=== PATIENT | female | born 1960 | race African-American/Black ===

== ENCOUNTER 2017-12-23 11:43 | Emergency (ER) | payer MEDICARE, OTHER ==
[~2017-12-23] VITALS: Ht 165.1 cm; Wt 113.0 kg
[~2017-12-23 11:43] MED LIST: ALBUTEROL ORI; AMOX500T2 PO; IBUP-2030 PO; INHALER
[2017-12-23] MEDS ORDERED: IBUPROFEN 800MG TABLET PO ONE (15:15)
[2017-12-23] MEDS ORDERED: ACETAMINOPHEN 325MG TABLET PO ONE (16:15)
[2017-12-23 16:56] VITALS: BP 149/95
== END 2017-12-23 17:01 | disposition home or self-care (01) ==
LOC: ER 12:35
DX: M79.601 Pain in right arm (principal); R07.89 Other chest pain; R03.0 Elevated blood-pressure reading, without diagnosis of hypertension; M54.2 Cervicalgia; H91.90 Unspecified hearing loss, unspecified ear; J45.909 Unspecified asthma, uncomplicated; Z88.2 Allergy status to sulfonamides; Z88.6 Allergy status to analgesic agent; Z88.8 Allergy status to other drugs, medicaments and biological substances
CPT/HCPCS: 71046; 73080; 99284

== ENCOUNTER 2018-01-17 18:10 | Emergency (ER) | payer MEDICARE, OTHER ==
[~2018-01-17] VITALS: Ht 165.1 cm; Wt 119.0 kg
[2018-01-17] MEDS ORDERED: IPRATROPIUM BROMIDE (0.02%) 0.5MG/2.5ML NEB HHN STA (20:24)
[2018-01-17] MEDS ORDERED: PREDNISONE 20MG TABLET PO STA (20:24)
[2018-01-17] MEDS ORDERED: ALBUTEROL (0.083%) 2.5MG/3ML NEB HHN STA (20:24)
[2018-01-17 21:05] VITALS: BP 156/84
== END 2018-01-17 21:32 | disposition home or self-care (01) ==
LOC: ER 18:10
DX: J45.901 Unspecified asthma with (acute) exacerbation (principal); I10 Essential (primary) hypertension; D64.9 Anemia, unspecified; H91.90 Unspecified hearing loss, unspecified ear; Z88.6 Allergy status to analgesic agent; Z88.2 Allergy status to sulfonamides
CPT/HCPCS: 94644; 99285; J7512; J7611

== ENCOUNTER 2019-03-04 07:06 | Emergency (ER) | payer MEDICARE, OTHER ==
[~2019-03-04] VITALS: Ht 165.1 cm; Wt 93.0 kg
[~2019-03-04 07:06] MED LIST changes: +CHOL100044 MT
[2019-03-04 07:22] VITALS: BP 126/81
== END 2019-03-04 09:20 | disposition home or self-care (01) ==
LOC: ER 07:06
DX: L72.3 Sebaceous cyst (principal); J45.909 Unspecified asthma, uncomplicated; Z88.6 Allergy status to analgesic agent; Z88.3 Allergy status to other anti-infective agents; Z88.2 Allergy status to sulfonamides
CPT/HCPCS: 99282

== ENCOUNTER → 2021-07-31 | Outpatient (CLI) | payer MEDICARE, OTHER ==
[~2021-07-31] MED LIST changes: +ALBU6.7H9 IH; +LOSA25TA26 PO; +METF-414 PO
== END | disposition home or self-care (01) ==
LOC: LAB 15:00
PROVIDERS: ATTEND Obstetrics & Gynecology Obstetrics
DX: Z01.812 Encounter for preprocedural laboratory examination (principal); Z20.822 Contact with and (suspected) exposure to COVID-19
CPT/HCPCS: 87426

== ENCOUNTER → 2021-08-02 | Day surgery (SDC) | payer MEDICARE, OTHER ==
[~2021-08-02] VITALS: Ht 167.6 cm; Wt 121.1 kg
[~2021-08-02] MED LIST changes: +DEXAMETHASONE 4MG/ML 1ML VIAL ONE; +FENTANYL CITRATE/PF 50MCG/ML 2ML VIAL ONE; +LACTATED RINGERS 1,000 ML IV SCH; +METOCLOPRAMIDE HCL 10MG/2ML VIAL ONE; +MIDAZOLAM HCL 2 MG/2 ML VIAL ONE; +ONDANSETRON HCL 4MG/2ML INJ IV PRN; +ONDANSETRON HCL 4MG/2ML INJ ONE; +PROPOFOL 200MG/20ML VIAL IV ONE
[2021-08-02 08:12] LABS: UCG SCREEN NEGATIVE
[2021-08-02] MEDS: FENTANYL CITRATE/PF 50MCG/ML 2ML VIAL IV PRN ×2 (13:51→14:05)
[2021-08-02 14:05] VITALS: BP 146/83
== END | disposition home or self-care (01) ==
LOC: OR 07:06
PROVIDERS: ATTEND Obstetrics & Gynecology Obstetrics
DX: R93.89 Abnormal findings on diagnostic imaging of other specified body structures (principal); R10.2 Pelvic and perineal pain; D25.9 Leiomyoma of uterus, unspecified; E66.01 Morbid (severe) obesity due to excess calories; N85.6 Intrauterine synechiae; I10 Essential (primary) hypertension; E78.00 Pure hypercholesterolemia, unspecified; J45.909 Unspecified asthma, uncomplicated; E11.9 Type 2 diabetes mellitus without complications; Z79.84 Long term (current) use of oral hypoglycemic drugs; Z79.899 Other long term (current) drug therapy; Z98.890 Other specified postprocedural states; Z88.1 Allergy status to other antibiotic agents
CPT/HCPCS: 58558; 81025; 82962; 88305; 93005; J1100; J2250; J2405; J2704; J2765; J3010

== ENCOUNTER → 2022-02-13 | Day surgery (SDC) | payer MEDICARE, OTHER ==
[~2022-02-13] MED LIST changes: -ALBUTEROL ORI; -AMOX500T2 PO; -CHOL100044 MT; -DEXAMETHASONE 4MG/ML 1ML VIAL ONE; -FENTANYL CITRATE/PF 50MCG/ML 2ML VIAL ONE; -IBUP-2030 PO; -INHALER; -LACTATED RINGERS 1,000 ML IV SCH; +LIDOCAINE HCL 1% 10 MG/ML 10ML VIAL ONE; -METOCLOPRAMIDE HCL 10MG/2ML VIAL ONE; -MIDAZOLAM HCL 2 MG/2 ML VIAL ONE; -ONDANSETRON HCL 4MG/2ML INJ IV PRN; -ONDANSETRON HCL 4MG/2ML INJ ONE; -PROPOFOL 200MG/20ML VIAL IV ONE; +SODIUM BICARBONATE 4% (2.4MEQ) 5ML VIAL IV ONE
== END | disposition home or self-care (01) ==
LOC: RAD 10:41
PROVIDERS: ATTEND Internal Medicine Endocrinology, Diabetes & Metabolism
DX: E04.1 Nontoxic single thyroid nodule (principal); Z79.84 Long term (current) use of oral hypoglycemic drugs; Z79.899 Other long term (current) drug therapy; Z98.890 Other specified postprocedural states; Z88.2 Allergy status to sulfonamides; Z88.8 Allergy status to other drugs, medicaments and biological substances; Z20.822 Contact with and (suspected) exposure to COVID-19
CPT/HCPCS: 10005; 87426; 88172; 88173; J3490